=== PATIENT | female | born 1975 | race American Indian/Alaskan Native ===

== ENCOUNTER 2018-06-12 08:47 | Emergency (ER) | payer MEDICAID ==
[~2018-06-12] VITALS: Ht 162.6 cm; Wt 65.0 kg
[~2018-06-12 08:47] MED LIST: DOCU-28 PO; ESCI20TA PO; GABA-532 PO; HYDR-3965 PO; SYN0.088T PO
[2018-06-12 08:55] VITALS: BP 156/105
[2018-06-12] MEDS ORDERED: oxyCODONE/APAP 10/325mg tablet PO ONE (09:15)
[2018-06-12] MEDS ORDERED: ketorolac trometh inj. 60 MG/2 ML VIAL IM ONE (09:15)
== END 2018-06-12 09:41 | disposition home or self-care (01) ==
LOC: ER 08:47
DX: G89.29 Other chronic pain (principal); M54.5 Low back pain; G43.909 Migraine, unspecified, not intractable, without status migrainosus; Z79.899 Other long term (current) drug therapy; Z90.49 Acquired absence of other specified parts of digestive tract; Z90.710 Acquired absence of both cervix and uterus; Z98.890 Other specified postprocedural states; Z90.721 Acquired absence of ovaries, unilateral
CPT/HCPCS: 96372; 99283; J1885

== ENCOUNTER 2018-12-06 09:57 | Emergency (ER) | payer OTHER, MEDICAID ==
[~2018-12-06] VITALS: Ht 162.6 cm; Wt 65.5 kg
[2018-12-06 10:28] VITALS: BP 136/93
[2018-12-06] MEDS ORDERED: ketorolac tromethamine 15mg/ml inj. IM ONE (11:15)
[2018-12-06] MEDS ORDERED: diazepam 5mg tablet PO ONE (11:15)
[2018-12-06] MEDS ORDERED: METH-360 PO (12:10)
== END 2018-12-06 12:15 | disposition home or self-care (01) ==
LOC: ER 09:58
DX: S29.012A Strain of muscle and tendon of back wall of thorax, initial encounter (principal); G43.909 Migraine, unspecified, not intractable, without status migrainosus; G89.29 Other chronic pain; Z90.49 Acquired absence of other specified parts of digestive tract; Z98.890 Other specified postprocedural states; Z90.710 Acquired absence of both cervix and uterus; Z79.899 Other long term (current) drug therapy; V49.88XA Car occupant (driver) (passenger) injured in other specified transport accidents, initial encounter; Y93.89 Activity, other specified; Y92.89 Other specified places as the place of occurrence of the external cause; Y99.9 Unspecified external cause status
CPT/HCPCS: 72070; 96372; 99283; J1885

== ENCOUNTER 2019-03-14 09:54 | Emergency (ER) | payer MEDICAID ==
[~2019-03-14] VITALS: Ht 162.6 cm; Wt 63.6 kg
[~2019-03-14 09:54] MED LIST changes: +METH-360 PO
[2019-03-14 10:28] LABS: CLARITY,URINE CLEAR (Clear); COLOR,URINE YELLOW (Yellow); GLUCOSE, URINE NEGATIVE (Neg); KETONES,URINE NEGATIVE (Neg); LEUKOCYTE ESTERASE ,URINE NEGATIVE (Neg); NITRITES, URINE NEGATIVE (Neg); OCCULT BLOOD,URINE NEGATIVE (Neg); PROTEIN,URINE NEGATIVE (Neg); UROBILINOGEN,URINE 0.2 E.U/dL (0.2-1.0)
[2019-03-14 10:31] LABS: UA COLLECTION TYPE CLN CATCH MIDSTREAM
[2019-03-14] MEDS ORDERED: morphine 4 MG/ML inj SYRINge IM ONE (10:35)
[2019-03-14 10:49] LABS: BASOPHILS % (AUTO) 0.3 % (0-1); EOSINOPHILS # (AUTO) 0.1 X10'3 (0-0.9); EOSINOPHILS % (AUTO) 1.1 % (0-6); HEMATOCRIT 38.3 % (35.0-45.0); HEMOGLOBIN 12.5 g/dl (12.0-16.0); LYMPHOCYTES # (AUTO) 1.1 X10'3 (1.1-4.8); LYMPHOCYTES % (AUTO) 16.5 % (21-51); MEAN CORPUSCULAR HEMOGLOBIN 30.1 PG (27.0-31.0); MEAN CORPUSCULAR HGB CONC 32.6 g/dL (33.0-36.5); MEAN CORPUSCULAR VOLUME 92.2 FL (78-98); MEAN PLATELET VOLUME 7.9 FL (7.4-10.4); MONOCYTES # (AUTO) 0.3 X10'3 (0-0.9); MONOCYTES % (AUTO) 4.2 % (2-12); NEUTROPHILS % (AUTO) 77.9 % (42-75); PLATELET COUNT 223 X10'3 (140-440); RED BLOOD COUNT 4.15 X10'6 (4.20-5.60); RED CELL DISTRIBUTION WIDTH 13.7 % (11.5-14.5); WHITE BLOOD COUNT 6.4 X10'3 (4.5-11.0)
[2019-03-14 11:03] LABS: ANION GAP 6 (8-16); BLOOD UREA NITROGEN 12 MG/DL (7-18); BUN/CREATININE RATIO 15.8 (6.6-38.0); CHLORIDE 106 MMOL/L (99-107); CREATININE 0.76 MG/DL (0.40-0.90); GLUCOSE 92 MG/DL (70-104); SODIUM 140 MMOL/L (135-145); TOTAL CARBON DIOXIDE 28.5 MMOL/L (24-32)
[2019-03-14 11:04] LABS: ALANINE AMINOTRANSFERASE 18 U/L (12-78); ALBUMIN 3.9 G/DL (3.4-5.0); ALBUMIN/GLOBULIN RATIO 1.3 (1.1-1.5); ALKALINE PHOSPHATASE 52 IU/L (46-116); ASPARTATE AMINO TRANSFERASE 9 U/L (10-37); BILIRUBIN,TOTAL 0.3 MG/DL (0.1-1.0); CALCIUM 8.6 MG/DL (8.5-10.1); eGFR 84 ML/MIN
[2019-03-14] MEDS ORDERED: HYDROmorphone 1 mg/ml syringe IM ONE (11:35)
[2019-03-14 12:20] VITALS: BP 123/84
[2019-03-14] MEDS ORDERED: oxyCODONE/APAP 5-325mg tablet PO ONE (12:20)
== END 2019-03-14 12:48 | disposition home or self-care (01) ==
LOC: ER 09:55
DX: R10.31 Right lower quadrant pain (principal); R11.0 Nausea; G89.29 Other chronic pain; G43.909 Migraine, unspecified, not intractable, without status migrainosus; Z79.899 Other long term (current) drug therapy; Z87.442 Personal history of urinary calculi; Z90.710 Acquired absence of both cervix and uterus; Z90.49 Acquired absence of other specified parts of digestive tract; Z90.721 Acquired absence of ovaries, unilateral; Z98.890 Other specified postprocedural states
CPT/HCPCS: 36415; 80053; 81003; 85025; 85610; 96372; 99283; J1170; J2270

== ENCOUNTER 2019-04-10 08:16 | Emergency (ER) | payer MEDICAID ==
[~2019-04-10] VITALS: Ht 162.6 cm; Wt 65.5 kg
[2019-04-10 08:44] LABS: CLARITY,URINE SLIGHTLY CLOUDY (Clear); COLOR,URINE STRAW (Yellow); GLUCOSE, URINE NEGATIVE (Neg); KETONES,URINE NEGATIVE (Neg); LEUKOCYTE ESTERASE ,URINE NEGATIVE (Neg); OCCULT BLOOD,URINE NEGATIVE (Neg); PH,URINE 5.5 (4.8-8.0); PROTEIN,URINE NEGATIVE (Neg); UROBILINOGEN,URINE 0.2 E.U/dL (0.2-1.0)
[2019-04-10] MEDS ORDERED: normal saline 1000ML IV soln IVB ONE (08:45)
[2019-04-10] MEDS ORDERED: morphine 4 MG/ML inj SYRINge IV PRN (08:45)
[2019-04-10] MEDS ORDERED: ondansetron/PF 4mg/2ml inj IV ONE (08:45)
[2019-04-10 08:49] LABS: NITRITES, URINE NEGATIVE (Neg); SQUAMOUS EPITHELIAL CELL,UR MANY /LPF (FEW); UA COLLECTION TYPE CLN CATCH MIDSTREAM
[2019-04-10 08:50] LABS: BACTERIA,URINE 2+ /HPF (Neg); RBC,URINE 0-2 /HPF (0-2); WBC,URINE 0-4 /HPF (0-4)
[2019-04-10 08:57] LABS: BASOPHILS % (AUTO) 0.4 % (0-1); EOSINOPHILS # (AUTO) 0.1 X10'3 (0-0.9); EOSINOPHILS % (AUTO) 0.5 % (0-6); HEMATOCRIT 39.6 % (35.0-45.0); LYMPHOCYTES # (AUTO) 0.9 X10'3 (1.1-4.8); LYMPHOCYTES % (AUTO) 8.7 % (21-51); MEAN CORPUSCULAR HEMOGLOBIN 30.1 PG (27.0-31.0); MEAN CORPUSCULAR HGB CONC 32.7 g/dL (33.0-36.5); MEAN CORPUSCULAR VOLUME 92.1 FL (78-98); MEAN PLATELET VOLUME 7.9 FL (7.4-10.4); MONOCYTES # (AUTO) 0.4 X10'3 (0-0.9); MONOCYTES % (AUTO) 3.8 % (2-12); NEUTROPHILS % (AUTO) 86.6 % (42-75); PLATELET COUNT 232 X10'3 (140-440); RED CELL DISTRIBUTION WIDTH 13.8 % (11.5-14.5); WHITE BLOOD COUNT 10.4 X10'3 (4.5-11.0)
[2019-04-10 09:12] LABS: ALANINE AMINOTRANSFERASE 17 U/L (12-78); ALBUMIN 4.1 G/DL (3.4-5.0); ALBUMIN/GLOBULIN RATIO 1.3 (1.1-1.5); ALKALINE PHOSPHATASE 51 IU/L (46-116); ANION GAP 9 (8-16); ASPARTATE AMINO TRANSFERASE 7 U/L (10-37); BILIRUBIN,TOTAL 0.4 MG/DL (0.1-1.0); BLOOD UREA NITROGEN 11 MG/DL (7-18); BUN/CREATININE RATIO 15.3 (6.6-38.0); CALCIUM 8.5 MG/DL (8.5-10.1); CHLORIDE 106 MMOL/L (99-107); CREATININE 0.72 MG/DL (0.40-0.90); GLUCOSE 85 MG/DL (70-104); LIPASE 131 U/L (73-393); POTASSIUM 3.9 MMOL/L (3.5-5.1); SODIUM 140 MMOL/L (135-145); TOTAL CARBON DIOXIDE 25.2 MMOL/L (24-32); TOTAL PROTEIN 7.2 G/DL (6.4-8.2); eGFR 89 ML/MIN
[2019-04-10] MEDS ORDERED: ONDA4TAB6 PO (09:22)
[2019-04-10] MEDS ORDERED: ketorolac trometh. 30mg/ml inj. IV ONE (09:25)
[2019-04-10 09:29] VITALS: BP 125/84
[2019-04-10 09:49] LABS: URINE HCG NEGATIVE (NEG)
== END 2019-04-10 10:13 | disposition home or self-care (01) ==
LOC: ER 08:16
DX: R10.31 Right lower quadrant pain (principal); G43.909 Migraine, unspecified, not intractable, without status migrainosus; G89.29 Other chronic pain; Z90.49 Acquired absence of other specified parts of digestive tract; Z98.890 Other specified postprocedural states; Z90.710 Acquired absence of both cervix and uterus; Z79.899 Other long term (current) drug therapy
CPT/HCPCS: 36415; 80053; 81001; 81025; 83690; 85025; 96374; 96375; 99283; J1885; J2270; J2405; J7030

== ENCOUNTER 2019-11-12 06:52 | Day surgery (SDC) | payer MEDICAID ==
[2019-11-09 10:21] LABS: CLARITY,URINE SLIGHTLY CLOUDY (Clear); COLOR,URINE YELLOW (Yellow); GLUCOSE, URINE NEGATIVE (Neg); KETONES,URINE NEGATIVE (Neg); LEUKOCYTE ESTERASE ,URINE NEGATIVE (Neg); NITRITES, URINE NEGATIVE (Neg); OCCULT BLOOD,URINE NEGATIVE (Neg); PROTEIN,URINE NEGATIVE (Neg); UROBILINOGEN,URINE 0.2 E.U/dL (0.2-1.0)
[2019-11-09 10:22] LABS: UA COLLECTION TYPE CLN CATCH MIDSTREAM
[2019-11-09 10:31] LABS: BACTERIA,URINE 3+ /HPF (Neg); MUCUS STRANDS FEW /LPF (Neg); RBC,URINE NONE SEEN /HPF (0-2); SQUAMOUS EPITHELIAL CELL,UR MANY /LPF (FEW); WBC,URINE 0-4 /HPF (0-4)
[2019-11-09 10:31] LABS: BASOPHILS % (AUTO) 0.5 % (0-1); EOSINOPHILS % (AUTO) 0.6 % (0-6); LYMPHOCYTES # (AUTO) 1.1 X10'3 (1.1-4.8); LYMPHOCYTES % (AUTO) 23.5 % (21-51); MEAN CORPUSCULAR HEMOGLOBIN 29.8 PG (27.0-31.0); MEAN CORPUSCULAR HGB CONC 33.4 g/dL (33.0-36.5); MEAN CORPUSCULAR VOLUME 89.2 FL (78-98); MEAN PLATELET VOLUME 7.8 FL (7.4-10.4); MONOCYTES # (AUTO) 0.3 X10'3 (0-0.9); MONOCYTES % (AUTO) 6.1 % (2-12); NEUTROPHILS # (AUTO) 3.2 X10'3 (1.8-7.7); NEUTROPHILS % (AUTO) 69.3 % (42-75); PRE OP HEMATOCRIT 35.1 % (35.0-45.0); PRE OP HEMOGLOBIN 11.7 g/dL (12.0-16.0); PRE OP PLATELET COUNT 213 X10'3 (140-440); RED BLOOD COUNT 3.93 X10'6 (4.20-5.60); RED CELL DISTRIBUTION WIDTH 13.9 % (11.5-14.5)
[2019-11-09 10:36] LABS: PRE OP PROTIME 10.3 SECONDS (9.0-12.0)
[2019-11-09 10:43] LABS: ALBUMIN/GLOBULIN RATIO 1.4 (1.1-1.5); ALKALINE PHOSPHATASE 46 IU/L (46-116); BLOOD UREA NITROGEN 12 MG/DL (7-18); BUN/CREATININE RATIO 16.9 (6.6-38.0); CALCIUM 8.9 MG/DL (8.5-10.1); CHLORIDE 105 MMOL/L (99-107); CREATININE 0.71 MG/DL (0.40-0.90); PRE OP ALT 17 U/L (30-65); PRE OP ANION GAP 4 (8-16); PRE OP AST 14 U/L (10-37); PRE OP BILIRUB, TOTAL 0.2 MG/DL (0.0-1.0); PRE OP GLUCOSE 95 MG/DL (70-104); PRE OP POTASSIUM 4.4 MMOL/L (3.4-5.1); PRE OP SODIUM 140 MMOL/L (135-145); TOTAL PROTEIN 6.9 G/DL (6.4-8.2); eGFR 90 ML/MIN
[2019-11-12] VITALS (10 sets, daily range): BP systolic 108–150; BP diastolic 72–94
[~2019-11-12] VITALS: Ht 162.6 cm; Wt 64.7 kg
[~2019-11-12 06:52] MED LIST changes: +AMIT75TA2 PO; -GABA-532 PO; -METH-360 PO; +ceFOXitin sod/dextrose 2g/50ml 50 ML IV ONE; +famotidine 20mg tablet PO ONE; +ringers solution, lacted 1,000 ML IV SCH
[2019-11-12] MEDS ORDERED: BUPIVAcaine/PF 2.5mg/ml (0.25%) 10ml vial ONE ×2 (06:58→09:09)
[2019-11-12] MEDS ORDERED: fentaNYL/PF 50MCG/1 ML 2ML syringe ONE ×2 (08:38→10:09)
[2019-11-12] MEDS ORDERED: midazolam 2 mg/2 ml injection ONE (08:39)
[2019-11-12] MEDS ORDERED: LIDOcaine 2% (20mg/ml) 5ml vial ONE (08:47)
[2019-11-12] MEDS ORDERED: rocuronium 10mg/ml inj IV ONE ×2 (08:47→09:29)
[2019-11-12] MEDS ORDERED: propofol inj 20 ML IV ONE (08:47)
[2019-11-12] MEDS ORDERED: dexamethasone sod phosphate 4mg/ml inj. ONE (08:48)
[2019-11-12] MEDS ORDERED: ondansetron/PF 4mg/2ml inj ONE (08:50)
[2019-11-12] MEDS ORDERED: fentaNYL/PF 50MCG/1 ML 2ML syringe IV PRN ×2 (09:15)
[2019-11-12] MEDS ORDERED: labetalol 20mg/4ml (5mg/ml) syringe IV PRN (09:15)
[2019-11-12] MEDS ORDERED: morphine 4 MG/ML inj SYRINge IV PRN (09:15)
[2019-11-12] MEDS ORDERED: ondansetron/PF 4mg/2ml inj IV PRN (09:15)
[2019-11-12] MEDS ORDERED: hydrALAZINE 20mg/ml inj. IV PRN (09:15)
[2019-11-12] MEDS ORDERED: morphine 2 MG/ML inj. syringe IV PRN (09:15)
[2019-11-12] MEDS ORDERED: ringers solution, lacted 1,000 ML IV SCH (09:15)
[2019-11-12] MEDS ORDERED: glycopyrrolate 0.2mg/ml inj ONE (10:04)
[2019-11-12] MEDS ORDERED: ketorolac trometh. 30mg/ml inj. ONE (10:09)
--- NOTE | 2019-11-12 10:20 | NUR ---
ARRIVED IN PACU VIA GURNEY FROM OR WITH DR Romeo IN ATTENDANCE. REPORT RECEIVED. O2 ON ON ARRIVAL PT AROUSABLE. VS STABLE. BEAR IRMA ON PT
--- NOTE | 2019-11-12 10:46 | NUR ---
FEELING BETER AFTER PAIN MEDS
[2019-11-12] MEDS ORDERED: HYDROcodone/acetaminophen 10/325mg tab PO ONE (11:05)
--- NOTE | 2019-11-12 11:10 | NUR ---
SISTER AT BEDSIDE. SITTING UP EATING AND DRINKING. PT STATES PAIN IMPROVED.
--- NOTE | 2019-11-12 11:50 | NUR ---
PT HAS NO URGE TO VOID, DR LOZANO SAID OK WITHOUT VOIDING. PT INSTRUCTED TO CALL MD IF SHE DOESN'T VOID IN 8HRS
--- NOTE | 2019-11-12 11:50 | NUR ---
UP DRESSED WITHOUT PROBLEMS. STEADY ON FEET. ASSISTED TO CAR VIA W/C BY NURSE WITHOUT INCIDENT.
== END 2019-11-12 11:50 | disposition home or self-care (01) ==
LOC: PAS 06:52
PROVIDERS: ATTEND Obstetrics & Gynecology
DX: R10.2 Pelvic and perineal pain (principal); G89.29 Other chronic pain; N73.6 Female pelvic peritoneal adhesions (postinfective); N83.8 Other noninflammatory disorders of ovary, fallopian tube and broad ligament; N80.1 Endometriosis of ovary; G47.00 Insomnia, unspecified; F32.9 Major depressive disorder, single episode, unspecified; E03.9 Hypothyroidism, unspecified; Z90.710 Acquired absence of both cervix and uterus; Z79.899 Other long term (current) drug therapy; Z98.890 Other specified postprocedural states; F17.210 Nicotine dependence, cigarettes, uncomplicated
CPT/HCPCS: 36415; 58661; 58662; 80053; 81001; 82948; 85025; 85610; 85730; 86885; 86900; 86901; C1758; J0694; J1100; J1885; J2001; J2250; J2270; J2405; J2704; J3010; J3490; J7120; S2900; A4618; A7000

== ENCOUNTER 2019-11-17 17:39 | Emergency (ER) | payer MEDICAID ==
[~2019-11-17] VITALS: Ht 162.6 cm; Wt 64.4 kg
[~2019-11-17 17:39] MED LIST changes: -ceFOXitin sod/dextrose 2g/50ml 50 ML IV ONE; -famotidine 20mg tablet PO ONE; -ringers solution, lacted 1,000 ML IV SCH
[2019-11-17] MEDS ORDERED: LEVO100T PO (19:39)
[2019-11-17] MEDS ORDERED: normal saline 1000ML IV soln IVB ONE ×2 (19:50→20:15)
[2019-11-17] MEDS ORDERED: morphine 4 MG/ML inj SYRINge IV ONE (20:15)
[2019-11-17] MEDS ORDERED: ondansetron/PF 4mg/2ml inj IV ONE (20:15)
[2019-11-17] MEDS ORDERED: LORazepam 2 mg/ml vial IV ONE (20:15)
[2019-11-17 20:30] LABS: BASOPHILS # (AUTO) 0.1 X10'3 (0-0.2); BASOPHILS % (AUTO) 0.6 % (0-1); EOSINOPHILS # (AUTO) 0.7 X10'3 (0-0.9); EOSINOPHILS % (AUTO) 6.8 % (0-6); HEMATOCRIT 34.8 % (35.0-45.0); HEMOGLOBIN 11.8 g/dl (12.0-16.0); LYMPHOCYTES # (AUTO) 1.7 X10'3 (1.1-4.8); LYMPHOCYTES % (AUTO) 18.1 % (21-51); MEAN CORPUSCULAR HGB CONC 33.8 g/dL (33.0-36.5); MEAN CORPUSCULAR VOLUME 88.5 FL (78-98); MEAN PLATELET VOLUME 7.6 FL (7.4-10.4); MONOCYTES # (AUTO) 0.6 X10'3 (0-0.9); MONOCYTES % (AUTO) 6.2 % (2-12); NEUTROPHILS # (AUTO) 6.6 X10'3 (1.8-7.7); NEUTROPHILS % (AUTO) 68.3 % (42-75); PLATELET COUNT 279 X10'3 (140-440); RED BLOOD COUNT 3.93 X10'6 (4.20-5.60); RED CELL DISTRIBUTION WIDTH 13.9 % (11.5-14.5); WHITE BLOOD COUNT 9.6 X10'3 (4.5-11.0)
[2019-11-17 20:46] LABS: ALANINE AMINOTRANSFERASE 15 U/L (12-78); ALBUMIN 4.1 G/DL (3.4-5.0); ALBUMIN/GLOBULIN RATIO 1.3 (1.1-1.5); ALKALINE PHOSPHATASE 54 IU/L (46-116); ANION GAP 7 (8-16); ASPARTATE AMINO TRANSFERASE 10 U/L (10-37); BILIRUBIN,TOTAL 0.2 MG/DL (0.1-1.0); BLOOD UREA NITROGEN 10 MG/DL (7-18); BUN/CREATININE RATIO 13.2 (6.6-38.0); CALCIUM 8.9 MG/DL (8.5-10.1); CHLORIDE 104 MMOL/L (99-107); CREATININE 0.76 MG/DL (0.40-0.90); GLUCOSE 96 MG/DL (70-104); LIPASE 96 U/L (73-393); POTASSIUM 3.9 MMOL/L (3.5-5.1); SODIUM 140 MMOL/L (135-145); TOTAL CARBON DIOXIDE 28.6 MMOL/L (24-32); TOTAL PROTEIN 7.3 G/DL (6.4-8.2); eGFR 83 ML/MIN
[2019-11-17] MEDS ORDERED: iohexol 300mg/ml 100ml inj. ONE (20:58)
[2019-11-17] MEDS ORDERED: morphine 2 MG/ML inj. syringe IV ONE (21:05)
[2019-11-17 21:17] LABS: CLARITY,URINE SLIGHTLY CLOUDY (Clear); COLOR,URINE YELLOW (Yellow); GLUCOSE, URINE NEGATIVE (Neg); KETONES,URINE NEGATIVE (Neg); LEUKOCYTE ESTERASE ,URINE MODERATE (Neg); NITRITES, URINE NEGATIVE (Neg); OCCULT BLOOD,URINE NEGATIVE (Neg); PROTEIN,URINE NEGATIVE (Neg); UROBILINOGEN,URINE 0.2 E.U/dL (0.2-1.0)
[2019-11-17 21:22] LABS: UA COLLECTION TYPE CLN CATCH MIDSTREAM
[2019-11-17 21:23] LABS: BACTERIA,URINE FEW /HPF (Neg); RBC,URINE NONE SEEN /HPF (0-2); SQUAMOUS EPITHELIAL CELL,UR MODERATE /LPF (FEW); WBC,URINE 20-30 /HPF (0-4)
[2019-11-17] MEDS ORDERED: CYCL-1 PO (22:08)
[2019-11-17] MEDS ORDERED: HYDR-3965 PO (22:08)
[2019-11-17] MEDS ORDERED: cyclobenzaprine 10mg tablet PO ONE (22:15)
[2019-11-17] MEDS ORDERED: morphine 4 MG/ML inj SYRINge IM ONE (22:15)
[2019-11-17 22:37] VITALS: BP 131/84
== END 2019-11-17 22:38 | disposition home or self-care (01) ==
LOC: ER 17:40
DX: R10.31 Right lower quadrant pain (principal); M54.5 Low back pain; G43.909 Migraine, unspecified, not intractable, without status migrainosus; G89.29 Other chronic pain; Z90.49 Acquired absence of other specified parts of digestive tract; Z90.710 Acquired absence of both cervix and uterus; Z98.890 Other specified postprocedural states; Z79.899 Other long term (current) drug therapy
CPT/HCPCS: 36415; 74177; 80053; 81001; 83690; 85025; 87088; 96372; 96374; 96375; 96376; 99285; J2060; J2270; J2405; J7030; Q9967

== ENCOUNTER 2020-04-11 09:33 | Emergency (ER) | payer MEDICAID ==
[~2020-04-11] VITALS: Ht 162.6 cm; Wt 66.9 kg
[~2020-04-11 09:33] MED LIST changes: -AMIT75TA2 PO; +CYCL-1 PO; -HYDR-3965 PO; +LEVO100T PO; -SYN0.088T PO
[2020-04-11] MEDS ORDERED: LIDOcaine 5% patch TP STA (10:00)
[2020-04-11] MEDS ORDERED: ketorolac trometh inj. 60 MG/2 ML VIAL IM ONE (10:00)
[2020-04-11] MEDS ORDERED: oxyCODONE/APAP 10/325mg tablet PO ONE (10:00)
[2020-04-11 10:37] VITALS: BP 135/79
== END 2020-04-11 10:37 | disposition home or self-care (01) ==
LOC: ER 09:33
DX: G89.29 Other chronic pain (principal); M54.42 Lumbago with sciatica, left side; M54.41 Lumbago with sciatica, right side; G43.909 Migraine, unspecified, not intractable, without status migrainosus; Z90.89 Acquired absence of other organs; Z90.710 Acquired absence of both cervix and uterus; Z98.890 Other specified postprocedural states; Z79.899 Other long term (current) drug therapy
CPT/HCPCS: 96372; 99284; J1885

== ENCOUNTER 2021-04-16 09:11 | Emergency (ER) | payer MEDICAID ==
[~2021-04-16] VITALS: Ht 162.6 cm; Wt 60.2 kg
[2021-04-16 09:17] VITALS: BP 159/108
[2021-04-16] MEDS ORDERED: NEOM10DR45 EACH EAR (09:35)
[2021-04-16] MEDS ORDERED: PRED20TA PO (09:35)
[2021-04-16] MEDS ORDERED: AMOX-422 PO (09:35)
[2021-04-16] MEDS ORDERED: ketorolac tromethamine 15mg/ml inj. IM ONE (09:35)
[2021-04-16] MEDS ORDERED: ondansetron 4mg rapidly disintigrating tab PO ONE (10:15)
[2021-04-16] MEDS ORDERED: HYDROcodone/acetaminophen 10/325mg tab PO ONE (10:15)
== END 2021-04-16 11:19 | disposition home or self-care (01) ==
LOC: ER 09:11
DX: H66.93 Otitis media, unspecified, bilateral (principal); G89.29 Other chronic pain; M54.9 Dorsalgia, unspecified; G43.909 Migraine, unspecified, not intractable, without status migrainosus; Z90.49 Acquired absence of other specified parts of digestive tract; Z79.899 Other long term (current) drug therapy
CPT/HCPCS: 96372; 99283; J1885

== ENCOUNTER 2025-02-23 09:20 | Emergency (ER) | payer BC, MEDICAID ==
[~2025-02-23] VITALS: Ht 162.6 cm; Wt 60.5 kg
[~2025-02-23 09:20] MED LIST changes: +NEOM10DR45 EACH EAR
[2025-02-23 09:23] VITALS: BP 143/89; PULSE 77; TEMP 98.2; O2SAT 99
--- NOTE | 2025-02-23 10:14 | RADIOLOGY REPORT ---
DI HAND, COMPLETE (3VW MIN), INDICATION: HAND PAIN TECHNICAL DATA: Frontal, oblique and lateral views were obtained of the right hand. COMPARISON: None FINDINGS: There is a comminuted and displaced fracture at the head of the 5th metacarpal. Joint spaces are main tained. Soft tissues are within normal limits. IMPRESSION: comminuted and displaced fracture at the head of the 5th metacarpal.
--- NOTE | 2025-02-23 10:25 | Physician Documentation ---
History of Present Illness ~ Chief Complaint: Hand pain Stated Complaint: SWOLLEN HAND Time Seen by MD: 09:32 OK to notify your PCP?: Yes Primary Medical Doctor: molina santos Source: patient Mode of Arrival: POV Exam Limitations: no limitations HPI 49-year-old right-handed female with right hand pain after she fell out of her bed last night and hit her hand on her dresser. She states the pain is very localized to her hand. She did not hit her head there was no loss of consciousness. Her hand is swollen. She states she did not come in to the ER last night because she was drinking alcohol and having a good time. Tetanus within 5 years: No (2018) Medication Reconciliation Allergies: Coded Allergies: No Known Allergies (Unverified , 04/11/20) Scheduled Docusate Sodium (Colace), 1 CAP PO BID, (Reported) Escitalopram Oxalate (Lexapro), 1 TABLET PO DAILY, (Reported) Levothyroxine Sodium (Synthroid), 1 TAB PO DAILY, (Reported) Neomycin/Polymyxin B Sulf/Hc (Dosxopnb-Beotvxtsz-Kl Ear Susp), 4 DROP EACH EAR Q8H Scheduled PRN Cyclobenzaprine* (Cyclobenzaprine*), 1 TAB PO TID PRN for pain Past Medical History Past Medical History: Migraine, Chronic Pain, Chronic Back Pain Past Surgical History: appendectomy, , hysterectomy, orthopedic surgeries Other Past Surgical History: right oophorectomy, laparoscopic resection of endometriosis Alcohol Use: Rarely Drug Use: none Lives with: Mother, Father, Spouse, Family Lives In: Home Occupation: employed, other Review of Systems All Other Systems at this time: Reviewed and Negative Physical Exam Vital Signs: Temperature: 98.2, Source: Oral, Heart Rate: 77, Respiratory Rate: 18, BP: 143/89, Pulse Oximetry: 99, Weight: 60.500 Physical Exam General Appearance: Alert, WD/WN. NAD. HEENT: NCAT, PERRL, EOMI. Neck: Supple, trachea midline. Cardiovascular: RRR. No m/r/g. Lungs: CTAB. Breathing unlabored Extremities: Right hand is edematous mostly over the 3rd through 5th metacarpals no ecchymosis no erythema no abrasions. Localized tenderness over the 5th metacarpal. No tenderness over the wrist joint or digits. Radial pulses 2+ bilaterally cap refill at fingertips less than 2 seconds. Skin: Warm/dry, normal color Neurological: Alert and oriented x4, normal gait. Psychiatric: Affect congruent with mood. Procedures Procedures PLACED IN ULNAR GUTTER SPLINT BY CARTOGRAPHIC TECHNICIAN PLASTER Progress Progress Note DI HAND, COMPLETE (3VW MIN), INDICATION: HAND PAIN TECHNICAL DATA: Frontal, oblique and lateral views were obtained of the right hand. COMPARISON: None FINDINGS: There is a comminuted and displaced fracture at the head of the 5th metacarpal. Joint spaces are maintained. Soft tissues are within normal limits. IMPRESSION: comminuted and displaced fracture at the head of the 5th metacarpal. Results/Orders Reviewed/noted all lab results: Yes Results/Orders Orders - JORGE WU Ortho Orders (02/23/25 10:15) Vital Signs 02/23/25 09:23 Temp 98.2 Pulse 77 Resp 18 B/P (MAP) 143/89 Pulse Ox 99 Medical Decision Making Hand Diff Dx:Considerations: Include: Abrasion, Arthritis, Contusion, DJD, Felon, Fracture-carpal, Fracture-metacarpal, Fracture-phalynx, Fracture-radius, Fracture-ulna, Gout, Hematoma, Herpetic salena, Laceration, Neurovascular injury, Open fracture, Paronychia, Rheumatoid arthritis, Septic, Sprain, Subungual hematoma, Tenosynovitis, Volar plate injury, Cellulitis, Malunion Departure Time of Disposition: 10:23 Disposition: 01 HOME / SELF CARE / HOMELESS Impression: Primary Impression: Fracture, metacarpal shaft Qualified Codes: S62.326A - Displaced fracture of shaft of fifth metacarpal bone, right hand, initial encounter for closed fracture Discharge Instructions: Fracture, Hand Additional Instructions: F/U WITH ORTHOPEDIST YOU USUALLY NEED REFERRAL TO ORTHOPEDIST FROM YOUR PRIMARY CARE PROVIDER TO OUR ONCALL PROVIDER Referrals: NO PRIMARY CARE PROVIDER (PCP) Prescriptions Hydrocodone Bit/Acetaminophen (Hydrocodon-Acetaminophn 10-325 tablet) 10mg- 325mg Tablet 1 TAB PO TID PRN PRN for pain for 5 Days, #15 TAB S62.336 BOXER'S FRACTURE Prov: JORGE WU 02/23/25 Education Educated: Patient Educated regarding: diagnosis, treatment, need for follow up Signature Scribe Signature: x Attestation: JORGE Raphael Feb 23, 2025 10:25
[2025-02-23] MEDS ORDERED: HYDR-3972 PO (10:26)
[2025-02-23] MEDS: HYDROcodone/acetaminophen 10/325mg tab PO ONE (10:32)
[2025-02-23 11:26] VITALS: RESP 16
== END 2025-02-23 11:24 | disposition home or self-care (01) ==
LOC: ER 09:21
DX: S62.326A Displaced fracture of shaft of fifth metacarpal bone, right hand, initial encounter for closed fracture (principal); G43.909 Migraine, unspecified, not intractable, without status migrainosus; Z98.890 Other specified postprocedural states; Z90.49 Acquired absence of other specified parts of digestive tract; Z79.899 Other long term (current) drug therapy; W06.XXXA Fall from bed, initial encounter; Y93.89 Activity, other specified; Y92.89 Other specified places as the place of occurrence of the external cause; Y99.8 Other external cause status
CPT/HCPCS: 29125; 73130; 99283; A4565; A6446; A6449